=== PATIENT | female | born 1990 | race African-American/Black ===

== ENCOUNTER 2017-04-29 18:29 | Emergency (ER) | payer OTHER ==
[~2017-04-29] VITALS: Ht 162.6 cm; Wt 70.5 kg
[2017-04-29 23:26] LABS: BASO % 0.3 % (0.0-1.0); EOS # 0.2 K/mm3 (0.0-0.50); EOS % 2.7 % (0.0-3.0); LARGE UNSTAINED CELL # 0.2 K/mm3 (0.0-0.4); LARGE UNSTAINED CELL % 1.8 % (0.0-4.0); MEAN CORPUSCULAR HEMOGLOBIN 25.5 pg (27.0-33.0); MEAN CORPUSCULAR HGB CONC 34.5 g/dl (32.0-36.5); MEAN CORPUSCULAR VOLUME 73.9 fl (80.0-96.0); MONO # 0.5 K/mm3 (0.0-0.8); MONO % 5.9 % (0.0-5.0); NEUTROPHILS # 5.8 K/mm3 (1.8-7.7); NEUTROPHILS % 66.3 % (36.0-66.0); PLATELET COUNT, AUTOMATED 284 k/mm3 (150-450); RED CELL DISTRIBUTION WIDTH 12.8 % (11.5-14.5); WHITE BLOOD COUNT 8.7 K/mm3 (4.0-10.0)
--- NOTE | 2017-04-29 23:30 | REPUSA ---
Clinical history: vaginal spotting. Findings: Real-time transabdominal ultrasound images of the pelvis were obtained. There is a single l yeison intrauterine gestation. The crown rump length measures 0.8 cm. heart rate measures 122 bpm. There is a small hypoechoic area adjacent to the gestational sac measuring 1.0 x 0.8 x 3.9 cm. An an teverted uterus is noted, measuring 7.8 x 4.9 x 6.3 8 cm. The uterus demonstrates normal echotexture and echogenicity. The right ovary measures 3.6 x 2.6 x 1.9 cm. The left ovary measures 1.5 x 2.5 x 1. 2 cm. No adnexal masses are seen. There is no evidence of free fluid. Impression: 1. Single live intrauterine measuring 6 weeks 5 days by ultrasound measurements, with a fet al heart rate of 122 bpm. 2. Small subchorionic hemorrhage.
[2017-04-30 00:36] VITALS: BP 127/74
== END 2017-04-30 00:37 | disposition home or self-care (01) ==
LOC: M ED 18:29
DX: O20.8 Other hemorrhage in early pregnancy (principal); Z3A.01 Less than 8 weeks gestation of pregnancy

== ENCOUNTER 2017-08-19 13:51 | Outpatient (CLI) | payer OTHER | END 2017-08-19 16:15 | disposition home or self-care (01) | LOC: M LDO 13:51 | DX: O26.852 Spotting complicating pregnancy, second trimester (principal); Z3A.23 23 weeks gestation of pregnancy; O20.8 Other hemorrhage in early pregnancy; N93.9 Abnormal uterine and vaginal bleeding, unspecified; O26.892 Other specified pregnancy related conditions, second trimester | CPT/HCPCS: 76811 ==

== ENCOUNTER 2017-12-22 11:06 | Inpatient (IN) | payer OTHER ==
[2017-12-22 14:09] LABS: HEMATOCRIT 35.8 % (36.0-47.0); HEMOGLOBIN 11.7 g/dl (12.0-15.5); MEAN CORPUSCULAR HEMOGLOBIN 23.7 pg (27.0-33.0); MEAN CORPUSCULAR HGB CONC 32.7 g/dl (32.0-36.5); MEAN CORPUSCULAR VOLUME 72.6 fl (80.0-96.0); PLATELET COUNT, AUTOMATED 334 10^3/uL (150-450); RED BLOOD COUNT 4.93 10^6/uL (4.00-5.40); RED CELL DISTRIBUTION WIDTH 14.5 % (11.5-14.5); WHITE BLOOD COUNT 10.4 10^3/uL (4.0-10.0)
[2017-12-22] MEDS: LR 1,000 ML IV ×3 (14:54→18:56)
[2017-12-22] MEDS: miSOPROStol 50 MCG 1/2 TAB (S0191) PO ×3 (15:23→23:43)
[2017-12-23] MEDS: LR 1,000 ML IV ×2 (08:49→13:55)
[2017-12-23] MEDS: OXYTOCIN DRIP 30 UNITS in APPROPRIATE DILUENT 1 EA IV (08:49)
[2017-12-23] MEDS: BUTORPHANOL 2 MG/ML INJ (J0595) IV ×2 (08:49→13:55)
[2017-12-23] MEDS ORDERED: TERBUTALINE SULFATE 1 MG/ML VIAL (J3105) As Ordered (22:20)
[2017-12-23] MEDS: TERBUTALINE SULFATE 1 MG/ML VIAL (J3105) SC (22:30)
[2017-12-23] MEDS ORDERED: ceFAZolin 2 GM/D5W 50 ML IV BAG (J0690 PER 500MG) As Ordered (22:34)
[2017-12-23] MEDS ORDERED: BICITRA 30ML SOLN UDC As Ordered (22:35)
[2017-12-23] MEDS: BICITRA 30ML SOLN UDC PO (22:45)
[2017-12-23] MEDS ORDERED: MORPHINE PRES-FREE INJ 10 MG/10 ML VIAL (J2274) As Ordered (22:47)
[2017-12-23] MEDS ORDERED: OXYTOCIN INJ 10 UNITS/ML VIAL (J2590) As Ordered ×4 (22:47→23:42)
[2017-12-23] MEDS ORDERED: fentaNYL 100 MCG/2 ML INJECTION (J3010) As Ordered ×2 (23:11→23:24)
[2017-12-23] MEDS ORDERED: MIDAZOLAM INJ 2 MG/2 ML VIAL (J2250) As Ordered (23:12)
[2017-12-23] MEDS ORDERED: PROPOFOL 200 MG/20 ML VIAL As Ordered ×2 (23:26)
[2017-12-23] MEDS ORDERED: SUCCINYLCHOLINE 100 MG/5 ML SYRINGE (J0330) As Ordered (23:26)
[2017-12-23 23:35] LABS: CORD GAS ABE V -8.8; CORD GAS HCO3 V 21.6 MEQ/L; CORD GAS O2 SAT V 45.9 %; CORD GAS PH V 7.132 UNITS; CORD GAS PO2 V 25.2 mmHg; CORD GAS SBC V 16.4 MEQ/L; CORD GAS TCO2 V 23.6 MEQ/L
[2017-12-23 23:37] LABS: CORD GAS ABE A -10.3; CORD GAS HCO3 A 19.7 MEQ/L; CORD GAS O2 SAT A 59.8 %; CORD GAS PH A 7.121 UNITS; CORD GAS SBC A 15.6 MEQ/L; CORD GAS TCO2 A 21.7 MEQ/L
[2017-12-23] MEDS ORDERED: dexameTHASONE 4 MG/ML 1ML VIAL (J1100) As Ordered ×2 (23:42)
[2017-12-23] MEDS ORDERED: KETOROLAC 60 MG/2 ML VIAL (J1885) As Ordered (23:53)
[2017-12-24] MEDS: LR 1,000 ML IV ×3 (00:17→04:06)
[2017-12-24] MEDS: PERCOCET 5MG/325MG TAB PO (00:25)
[2017-12-24] MEDS: fentaNYL 100 MCG/2 ML INJECTION (J3010) IV ×3 (00:25→01:41)
[2017-12-24] MEDS ORDERED: PERCOCET 5MG/325MG TAB As Ordered (00:30)
[2017-12-24] MEDS ORDERED: fentaNYL 100 MCG/2 ML INJECTION (J3010) As Ordered (00:30)
[2017-12-24] MEDS ORDERED: RHOGAM 300 MCG (1500 IU) INJ (J2790) IM (00:30)
[2017-12-24] MEDS ORDERED: MEASLES,MUMPS,RUBELLA VACCINE INJ (MMR-II) (90707) SC (00:30)
[2017-12-24] MEDS ORDERED: ONDANSETRON 4MG/2ML VIAL (J2405) IV (00:30)
[2017-12-24] MEDS: MORPHINE 4 MG/ML 1ML VIAL/SYRINGE (J2270) IV (02:15)
[2017-12-24] MEDS: KETOROLAC 30 MG/ML VIAL (J1885) IV ×3 (06:37→18:39)
[2017-12-24] MEDS: PRENATAL VITAMINS CHEWABLE TABLET PO (08:47)
[2017-12-24] MEDS: DOCUSATE SODIUM 100 MG CAP PO ×2 (08:47→21:34)
[2017-12-24] MEDS ORDERED: PERCOCET 5MG/325MG TAB PO ×2 (09:30)
[2017-12-25] MEDS: KETOROLAC 30 MG/ML VIAL (J1885) IV ×2 (00:30→00:46)
[2017-12-25] MEDS: IBUPROFEN 800 MG TAB PO ×2 (02:27→11:05)
[2017-12-25 06:54] LABS: HEMATOCRIT 25.3 % (36.0-47.0); HEMOGLOBIN 8.3 g/dl (12.0-15.5); MEAN CORPUSCULAR HEMOGLOBIN 24.1 pg (27.0-33.0); MEAN CORPUSCULAR HGB CONC 32.8 g/dl (32.0-36.5); MEAN CORPUSCULAR VOLUME 73.3 fl (80.0-96.0); PLATELET COUNT, AUTOMATED 232 10^3/uL (150-450); RED BLOOD COUNT 3.45 10^6/uL (4.00-5.40); RED CELL DISTRIBUTION WIDTH 14.6 % (11.5-14.5); WHITE BLOOD COUNT 14.6 10^3/uL (4.0-10.0)
[2017-12-25] MEDS: DOCUSATE SODIUM 100 MG CAP PO (09:19)
[2017-12-25] MEDS: PRENATAL VITAMINS CHEWABLE TABLET PO (09:19)
== END 2017-12-25 13:40 | disposition home or self-care (01) | DRG 766 ==
LOC: M LDI 11:06 → M OBS 12-24 01:19
PROVIDERS: Obstetrics & Gynecology
PROC: 10D00Z1 Extraction of Products of Conception, Low, Open Approach (ICD-10-PCS; principal; 2017-12-23 22:55)
PROC: 3E0P7VZ Introduction of Hormone into Female Reproductive, Via Natural or Artificial Opening (ICD-10-PCS; 2017-12-23 22:55)
DX: O48.0 Post-term pregnancy (principal); Z37.0 Single live birth; Z3A.41 41 weeks gestation of pregnancy; O76 Abnormality in fetal heart rate and rhythm complicating labor and delivery; D57.3 Sickle-cell trait; O99.02 Anemia complicating childbirth